=== PATIENT | female | born 1990 | race Caucasian/White ===

== ENCOUNTER 2017-09-23 15:03 | Inpatient (IN) | payer BC ==
[2017-09-23 15:43] VITALS: BMI 28.1
[2017-09-23] MEDS ORDERED: HYDROcodone/Acetaminophen 5/325 mg Tablet PO PRN ×2 (16:01)
[2017-09-23] MEDS ORDERED: LR / Pitocin 40 units/1000 ml 1,000 ML IV PRN (16:01)
[2017-09-23] MEDS ORDERED: Ibuprofen 800 MG TAB PO PRN (16:01)
[2017-09-23] MEDS ORDERED: Promethazine HCl 25 MG/ML VIAL IM PRN (16:01)
[2017-09-23] MEDS ORDERED: Lidocaine 1% (PF) 30 ML VIAL SC PRN (16:01)
--- NOTE | 2017-09-23 16:05 | PDOC.LDHP ---
Labor and Delivery H&P HPI: Patient of Dr Meyer, who is a 27 yo Gi at 40 weeks and 3 days, presents to L&D with SOOL. No VB nor WEST, Visual changes, RUQ lucian. She denies issues. Review of systems completed negative (all points) and negative, as per HPI. Current gestational age (weeks): 40 (3 days) Dating criteria: last menstrual period Grav: 1 Para: 0 OB History Details: 09/20/17 Abnormal US findings: No Current medications: none Previous surgical history: other (wisdom teeth) Allergies/Adverse Reactions: Allergies Allergy/AdvReac Type Severity Reaction Status Date / Time No Known Allergies Allergy Verified 09/23/17 15:32 Social history: none - Physical Exam Vital signs reviewed and normal: yes General: NAD Heart: RRR Lungs: CTAB Abdomen: gravid (EFW about 7 #) Extremeties: no edema FHT: category 1 [place] contractions every: Every 4-6 minutes - Vaginal Exam cm dilated: 5 Effacement: 75% Station: -1 - Assessment L&D Assessment: term patient in labor - Plan Plan: admit to L&D, labor augmentation if indicated, informed consent obtained, anesthesia consult for pain management, other (Patient desires the low intervention protocol, per her plan. Dr Meyer has been notified of the patient's arrival. Routine admit to L&D. GBS negative.)
[2017-09-23 16:29] LABS: Hemoglobin 14.5 g/dL (12.0-16.0); Mean Corpuscular HGB CONC 35.6 g/dL (32.0-36.0); Mean Corpuscular Hemoglobin 33.3 pg (27.0-31.0); Mean Corpuscular Volume 93.7 fl (81.0-99.0); Mean Platelet Volume 7.7 fL (7.4-10.4); Platelet Count 202 thou/uL (130-400); RBC Distribution Width 14.1 % (11.5-14.5); Red Blood Cell (RBC) Count 4.35 mill/uL (4.20-5.40); White Blood Cell (WBC) Count 17.1 thou/uL (4.8-10.8)
[2017-09-23 17:09] LABS: Syphilis Antibody Nonreactive (Nonreactive); Syphilis Antibody Index 0.04 S/CO (<1.00 Non-Reactive)
[2017-09-23 17:10] LABS: HBSAg Index 0.14 S/CO (0-0.99); HIV (1/2) Antibody/Antigen Non-Reactive (NonReactive); HIV 1/2 INDEX 0.18 S/CO (<1.00); Hep B Surf Ag Non-Reactive S/CO (NonReactive)
[2017-09-23] MEDS ORDERED: FLU VACC QS2017-18 36 mo. & older 0.5 ML SYRINGE IM ONE (17:15)
[2017-09-23] MEDS ORDERED: LR / Pitocin 40 units/1000 ml 1,000 ML IV SCH (23:45)
[2017-09-23] MEDS ORDERED: Benzocaine/Menthol 20-0.5% 60 ML CAN TOP PRN (23:52)
[2017-09-23] MEDS ORDERED: Lanolin Ointment 7 GM TUBE TOP PRN (23:52)
[2017-09-23] MEDS ORDERED: Milk Of Magnesia 30 ML UDCUP PO PRN (23:52)
[2017-09-23] MEDS ORDERED: traMADol HCl 50 MG TAB PO PRN (23:52)
[2017-09-23] MEDS ORDERED: Bisacodyl 10 MG SUPP PR PRN (23:52)
[2017-09-23] MEDS ORDERED: diphenhydrAMINE 25 MG CAP PO PRN (23:52)
--- NOTE | 2017-09-23 23:55 | PDOC.OPDEL ---
OB Operative/Delivery Note Delivery Dr/Surgeon: Mitch Pre-Delivery Diagnosis: active labor Procedure/Post Delivery Dx: spontaneous vaginal delivery Weeks gestation: 40 Anesthesia: none - Findings A Sex: male - 1 min: 9 - 5 min: 9 - Additional Findings/Plan Placenta delivered: spontaneous Repaired Obstetrical Laceration: 2nd degree (and rt labial) Estimated blood loss: 250ml Post delivery plan: routine recovery
[2017-09-24] MEDS: Ibuprofen 800 MG TAB PO SCH ×3 (06:18→21:31)
--- NOTE | 2017-09-24 08:01 | PDOC.PP ---
Post Progress Note Post Day #: 0-1 PO intake tolerated: yes Flatus: yes Ambulation: yes Vital Signs (12 hours) Temp Pulse Resp BP 09/24/17 07:51 98.5 F 96 16 128/59 L 09/24/17 06:04 98.9 F 101 H 18 09/24/17 03:00 98.8 F 101 H 18 121/70 09/23/17 23:52 100.0 F H Weight Weight 180 lb - Physical Examination General: NAD Cardiovascular: no m/r/g, RRR Respiratory: clear to auscultation bilaterally, non-labored breathing Abdominal: + bowel sounds, lochia, no distention, appropriately TTP Result Diagrams: 09/23/17 16:10 Additional Labs: Post Labs Blood Type AB NEGATIVE 09/23/17 16:10 Hep Bs Antigen Non-Reactive S/CO (NonReactive) 09/23/17 16:10 - Assessment/Plan post day 0-1 doing well. routine post care. d/c in AM
[2017-09-24] MEDS: Lactated Ringer's 1,000 ML IV SCH ×3 (08:17→13:56)
[2017-09-24] MEDS: Ferrous Sulfate 325 MG TAB PO SCH ×2 (08:18→17:08)
[2017-09-24] MEDS: Prenatal Vitamin 1 TAB PO SCH (08:19)
[2017-09-24] MEDS: Docusate Calcium (SURFAK) 240 MG CAP PO SCH ×2 (08:19→21:32)
[2017-09-24] MEDS ORDERED: Adacel (T-DAP) 0.5 ML VIAL IM ONE (09:00)
[2017-09-25] MEDS: Lactated Ringer's 1,000 ML IV SCH ×2 (05:50→08:36)
[2017-09-25] MEDS: Ibuprofen 800 MG TAB PO SCH ×2 (06:18→13:30)
[2017-09-25 07:56] VITALS: BP 117/61; TEMP 98.7
--- NOTE | 2017-09-25 08:10 | PDOC.PP ---
Post Progress Note Post Day #: 2 Vital Signs (12 hours) Temp Pulse Resp BP 09/25/17 07:55 98.7 F 84 18 117/61 Weight Weight 180 lb - Physical Examination General: NAD Cardiovascular: no m/r/g, RRR Respiratory: clear to auscultation bilaterally, non-labored breathing Abdominal: + bowel sounds, lochia, no distention, appropriately TTP Result Diagrams: 09/23/17 16:10 Additional Labs: Post Labs Blood Type AB NEGATIVE 09/23/17 16:10 Hep Bs Antigen Non-Reactive S/CO (NonReactive) 09/23/17 16:10 - Assessment/Plan doing well d/c home. f/u 6 weeks
[2017-09-25] MEDS: Prenatal Vitamin 1 TAB PO SCH (08:35)
[2017-09-25] MEDS: Docusate Calcium (SURFAK) 240 MG CAP PO SCH (08:35)
[2017-09-25] MEDS: Ferrous Sulfate 325 MG TAB PO SCH (08:36)
== END 2017-09-25 15:05 | disposition home or self-care (01) | DRG 775 ==
LOC: L&D/OP 15:03 → L&D 16:05 → 3SW 09-24 02:43
PROVIDERS: ADMIT Obstetrics & Gynecology; ATTEND Obstetrics & Gynecology
PROC: 10E0XZZ Delivery of Products of Conception, External Approach (ICD-10-PCS; principal; 2017-09-23)
PROC: 0KQM0ZZ Repair Perineum Muscle, Open Approach (ICD-10-PCS; 2017-09-23)
PROC: 3E0334Z Introduction of Serum, Toxoid and Vaccine into Peripheral Vein, Percutaneous Approach (ICD-10-PCS; 2017-09-24)
DX: O26.893 Other specified pregnancy related conditions, third trimester (principal); Z28.21 Immunization not carried out because of patient refusal; O70.1 Second degree perineal laceration during delivery; Z37.0 Single live birth; Z3A.40 40 weeks gestation of pregnancy; Z67.31 Type AB blood, Rh negative
CPT/HCPCS: 36415; 85027; 85461; 86780; 87340; 87389; 90384; 96372; 99285; A4216; J2001